=== PATIENT | male | born 1965 | race Caucasian/White ===

== ENCOUNTER 2017-05-29 16:44 | Emergency (ER) | payer OTHER ==
[~2017-05-29] VITALS: Ht 172.7 cm; Wt 94.4 kg
[~2017-05-29 16:44] MED LIST: ALBUTEROL SULF8.5 GM IH; AMITRIPTYLINE H25 MG PO; ASTELIN137 MCG/0. NS; ASTEPRO 0.15%30 ML BOTH NARES; ASTEPRO 0.15%30 ML IH; AUGMENTIN875 MG PO; ELAVIL25 MG PO; FLEXERIL10 MG PO; FLOVENT 11120 INHALA IH; INDOCIN25 MG PO; MAGIC MOUTHWASH1 ML MM; METOPROLOL; NAPHCON-A EYE D15 ML BOTH EYES; NAPROXEN500 MG PO; NOHOMEMEDS; NORCO 7.5/321 TABLET PO; PREDNISONE50 MG PO; ROBITUSSIN AC,T10 ML PO; TESSALON200 MG PO; TOPROL XL50 MG PO; TOPROL XL6.25 MG PO; TORADOL10 MG PO; ULTRAM50 MG PO; VENTOLIN HFA18 GM IH; [UNRECOGNIZED DRUG - OTHER] PO
[2017-05-29 17:13] VITALS: BP 148/88
== END 2017-05-29 17:14 | disposition left against medical advice (07) ==
LOC: EME 16:44
DX: R55 Syncope and collapse (principal); Z53.21 Procedure and treatment not carried out due to patient leaving prior to being seen by health care provider
CPT/HCPCS: 80053; 83690; 84484; 85027; 93005; 99281; 99284